=== PATIENT | male | born 1945 | race Caucasian/White ===

== ENCOUNTER 2016-11-06 09:07 | Outpatient (CLI) | payer BC ==
[~2016-11-06] VITALS: Ht 185.4 cm; Wt 87.3 kg
--- NOTE | ~2016-11-06 | HEMODYNAMI ---
PATIENT:ZULEMA HANSEN MEDICAL RECORD: [id number] : 45 LOCATION:[facility] ADMISSION DATE: 11/06/16 Generatedon:11/06/201613:35 Patient name: ZULEMA HANSEN Patient #: [id number] SSN: DO B: 1945 Date of study: 11/06/2016 Page: Of Hemodynamic Procedure Report Patient Data Patient Demographics Procedure consent was obtained First Name: ZULEMA Gender: Male Last Name: TYRONE : 1945 Patient #: [id number] Age: 71 year(s) Race: Unknown Additional ID: [id number] Contact details [address]: [address] [place] [address] State: [place] City: [place] Zip code: [address] Past Medical History Allergies Allergen Reaction Date Comments Reported Other allergy 11/06/2016 [facility] Admission Admission Data Admission Date: 11/06/2016 Admission Time: 9:07 Admit Source: Other Insurance Payor: Private health insurance Height (in.): 73 BSA: 2.11 (m2) Height (cm.): 185.42 BMI: 25.33 (kg/m2) Weight (lbs.): 192 Weight (kg.): 87.09 Lab Results Lab Result Date: 11/06/2016 Lab Result Time: 0:00 Biochemistry Name Units Result Min Max CK-MB ng/ml 2.9 --(---*)-- 0 3.6 Creatinine mg/dl 1 --(--*-)-- 0.6 1.3 Creatinine l 128 --(--*-)-- 21 215 Kinase Troponin l ng/ml 0.017 --(-*--)-- 0 0.06 CBC Name Units Result Min Max Hematocrit % 49.8 --(--*-)-- 42 54 Hemoglobin g/dl 17 --(---*)-- 13.5 17.5 Procedure Procedure Types Cath Procedure Diagnostic Procedure [facility] w/Coronaries FFR/IVUS Intra-Coronary IVUS Initial PCI Procedure Coronary Stent Initial Miscellaneous Procedures Moderate Sedation up to 45 minutes Procedure Description Procedure Date Procedure Date: 11/06/2016 Procedure Start Time: 13:11 Procedure End Time: 13:35 Procedure Staff Name Function Jose E Christopher MD Performing Physician Americo Hernandez RT Scrub Joe Tran RN Nurse Sabrina Akers RT Monitor Procedure Data Cath Procedure Fluoroscopy Diagnostic fluoroscopy Total fluoroscopy Time: 5.3 time: 5.3 min min Diagnostic fluoroscopy Total fluoroscopy dose: dose: 1529 mGy 1529 mGy Contrast Material Contrast Material Type Amount (ml) Isovue 300 132 Entry Location Entry Primary Successful Side Size Upsize Upsize Entry Closure Justcie ccessful Closure Location (Fr) 1 (Fr) 2 (Fr) Remarks Device Remarks Radial Right 6 Fr Mechanical artery Short Compression Estimated blood loss: 5 ml Diagnostic catheters Device Type Used For End Catheter Placement Medtronic Dexterity 5Fr LV Angiography TRACT catheter (NO COST SUPPLY) Medtronic Dexterity 5Fr Left Coronary TRACT catheter (NO COST Angiography SUPPLY) Medtronic Dexterity 5Fr Right Coronary TRACT catheter (NO COST Angiography SUPPLY) Procedure Complications No complications Procedure Medications Medication Administration Route Dosage Oxygen NC 2 l/min Heparin Flush Bag added to field 2 bags (1000units/500ml NS) 0.9% NaCl 100 ml/hr Radial Cocktail added to field 1 syringe (Verapomil 2mg/Nitro 400mcg/Heparin 1500units) Fentanyl I.V. 50 mcg Versed I.V. 1 mg Fentanyl I.V. 50 mcg Versed I.V. 1 mg Fentanyl I.V. 50 mcg Versed I.V. 1 mg Radial Cocktail I.A. 1 syringe (Verapomil 2mg/Nitro 400mcg/Heparin 1500units) Fentanyl I.V. 50 mcg Versed I.V. 1 mg Fentanyl I.V. 50 mcg Heparin Bolus I.V. 4000 units Integrilin (Bolus I.V. 7.9 ml 2mg/ml) Plavix P.O. 600 mg Hemodynamics Rest BSA: 2.11 (m2) HGB: 17 (g/dl) O2 Consumption: Estimated: 250.8 (ml/min) O2 Consu mption indexed: Estimated:118.86 (ml/min/m) Heart Rate: 79 (bpm) Snapshots Pre Cath Intra NCS Post Cath Vital Signs Time Heart Resp SPO2 etCO2 [id number] NIBP (mmHg) Rhythm Pain Sedatio n Rate (ipm) (%) (mmHg) (mmHg) Status Level (bpm) 12:29:29 73 17 98 0 0 141/106(128) A-Fib 0 (11) 10(A) , No pain 12:33:38 85 17 100 0 0 140/102(122) A-Fib 0 (11) 10(A) , No pain 12:37:48 85 16 99 0 0 140/98(124) A-Fib 0 (11) 10(A) , No pain 12:41:58 85 18 100 0 0 132/104(118) A-Fib 0 (11) 10(A) , No pain 12:46:04 72 19 100 0 0 135/105(125) A-Fib 0 (11) 10(A) , No pain 12:50:10 79 16 94 0 0 114/96(107) A-Fib 0 (11) 10(A) , No pain 12:54:10 81 16 96 0 0 123/94(116) A-Fib 0 (11) 10(A) , No pain 12:58:13 77 16 99 0 0 132/103(123) A-Fib 0 (11) 10(A) , No pain 13:02:21 82 17 99 0 0 139/97(124) A-Fib 0 (11) 10(A) , No pain 13:06:31 80 17 99 0 0 139/93(112) A-Fib 0 (11) 10(A) , No pain 13:10:41 84 16 94 0 0 129/90(107) A-Fib 0 (11) 10(A) , No pain 13:14:45 93 16 96 0 0 92/71(79) A-Fib 0 (11) 9(A) , No pain 13:19:21 84 17 94 0 0 111/82(87) A-Fib 0 (11) 9(A) , No pain 13:23:25 83 19 92 0 0 116/82(98) A-Fib 0 (11) 9(A) , No pain 13:27:31 94 18 94 0 0 107/78(92) A-Fib 0 (11) 9(A) , No pain 13:31:34 81 17 96 0 0 113/74(98) A-Fib 0 (11) 10(A) , No pain 13:35:32 82 14 98 0 0 123/89(103) A-Fib 0 (11) 10(A) , No pain Medications Time Medication Route Dose Verified Delivered Reason Note s Effectiveness by by 12:30:29 Oxygen NC 2 l/min Joe Joe Per physician Marc Tran RN RN 12:30:51 Heparin Flush added 2 bags Joe Joe used for Bag to Marc Tran RN procedure (1000units/500ml field RN NS) 12:31:03 0.9% NaCl 100 Joe Joe Per physician ml/hr Marc Tran RN RN 12:31:25 Radial Cocktail added 1 Joe Joe used for (Verapomil to syringe Marc Tran RN procedure 2mg/Nitro field RN 400mcg/Heparin 1500units) 13:08:46 Fentanyl I.V. 50 mcg Joe Joe for sedation Marc Tran RN RN 13:08:53 Versed I.V. 1 mg Joe Joe for sedation Marc Tran RN RN 13:10:16 Fentanyl I.V. 50 mcg Joe Joe for sedation Marc Tran RN RN 13:10:22 Versed I.V. 1 mg Joe Joe for sedation Marc Tran RN RN 13:11:47 Fentanyl I.V. 50 mcg Joe Joe for sedation Marc Tran RN RN 13:11:51 Versed I.V. 1 mg Joe Joe for sedation Marc Tran RN RN 13:12:44 Radial Cocktail I.A. 1 Joe Joe for (Verapomil syringe Marc Tran RN vasodilation 2mg/Nitro RN 400mcg/Heparin 1500units) 13:13:39 Fentanyl I.V. 50 mcg Joe Joe for sedation Marc Tran RN RN 13:13:46 Versed I.V. 1 mg Joe Joe for sedation Marc Tran RN RN 13:17:23 Fentanyl I.V. 50 mcg Joe Joe for sedation Marc Tran RN RN 13:19:30 Heparin Bolus I.V. 4000 Joe Joe for units Marc Tran RN anticoagulation RN 13:26:12 Integrilin I.V. 7.9 ml Joe Joe for (Bolus 2mg/ml) Tran Tran RN antiplatelet RN therapy 13:29:52 Plavix P.O. 600 mg Joe Tran RN antiplatelet RN therapy Procedure Log Time Note 12:12:08 Joe Tran RN sent for patient. Start room use. 12:12:16 Lab Result : Creatinine 1 mg/dl 12:12:16 Lab Result : Hemoglobin 17 g/dl 12:12:16 Lab Result : Troponin l 0.017 ng/ml 12:12:16 Lab Result : CK-MB 2.9 ng/ml 12:12:16 Lab Result : Creatinine Kinase 128 l 12:22:20 Time tracking: Regular hours 12:22:24 Plan of Care:Hemodynamics will remain stable., Cardiac rhythm will remain stable., Comfort level will be maintained., Respiratory function will remain adequate., Patient/ family verbilizes understanding of procedure., Procedure tolerated without complication., Recovers from procedure without complications.. 12:22:30 Patient received from Pre/Post Procedure Room to [facility] 1 Alert and oriented. Tansferred to table in Supine position. 12:22:31 Warm blankets applied, and jake hugger turned on for patient comfort. 12:22:31 Correct patient and procedure confirmed by team. 12:22:33 Signed procedure consent form obtained from patient. 12:22:33 ECG and BP/O2 sat monitors applied to patient. 12:22:34 Full Disclosure recording started 12:28:28 Vital chart was started 12:30:29 Oxygen 2 l/min NC was administered by Joe Tran RN; Per physician; 12:30:51 Heparin Flush Bag (1000units/500ml NS) 2 bags added to field was administered by Joe Tran RN; used for procedure; 12:31:03 0.9% NaCl 100 ml/hr was administered by Joe Tran RN; Per physician; 12:31:25 Radial Cocktail (Verapomil 2mg/Nitro 400mcg/Heparin 1500units) 1 syringe added to field was administered by Joe Tran RN; used for procedure; 12:32:40 Baseline sample Acquired. 12:32:45 Rhythm: atrial fibrillation 12:32:56 H&P Date Dictated: 11/03/2016 Within 30 days and on chart., H&P Addendum completed by physician on day of procedure. (MUST COMPLETE FOR ALL OUTPATIENTS). 12:32:58 Pre-procedure instructions explained to patient. 12:32:58 Pre-op teaching completed and patient verbalized understanding. 12:32:59 Family in waiting room. 12:33:01 Patient NPO since Midnight. 12:33:16 Patient allergic to Other allergyLevaquin 12:33:20 Is the patient allergic to Iodine/contrast media? No. 12:33:22 Is patient on blood thinner?No 12:33:27 Patient diabetic? No. 12:33:57 Previous problem with sedation/anesthesia? No ? 12:33:58 Snore? Yes 12:33:59 Sleep apnea? No 12:34:01 Deviated septum? No 12:34:01 Opens mouth fully? Yes 12:34:02 Sticks out tongue? Yes 12:34:04 Airway obstruction? No ? 12:34:06 Dentures? No ? 12:34:11 Pre procedure: right dorsailis pedis pulse 2+ Normal; easily identifiable; not easily obliterated 12:34:13 Modified Douglas's test Ulnar < 7 seconds 12:34:14 Patient pain scale 0/10 ?. 12:34:19 IV patent on arrival in left hand with 0.9% NaCl at O. 12:34:23 Lab results completed and on chart. 12:34:33 Right Radial & Left Groin area was prepped with chlora-prep and draped in sterile fashion 12:34:34 Alarms reviewed by R. N. 12:34:35 Sharps counted by scrub and verified by R.N. 12:34:37 Use device set Radial Dx 12:34:38 Acist Syringe opened to sterile field. 12:34:39 Medline Cath Pack opened to sterile field. 12:34:39 Bag Decanter opened to sterile field. 12:34:40 Terumo 6Fr Slender Glidesheath opened to sterile field. 12:34:40 St Jacob 260cm J .035 wire opened to sterile field. 12:34:41 Acist Hand Control opened to sterile field. 12:34:41 Acist Manifold opened to sterile field. 12:34:42 Tegaderm 4 x 4 opened to sterile field. 12:34:42 MBrace Wrist Support opened to sterile field. 12:35:34 Final Timeout: patient, procedure, and site verified with staff and physician. All members of the team are in agreement. 12:35:38 Right Radial site verified by team. 12:35:40 Physical assessment completed. ASA score P 2 - A patient with mild systemic disease as per Jose E Christopher MD. 12:35:44 Sedation plan: IV Moderate Sedation Versed, Fentanyl 12:44:53 Zero performed for pressure channel P1 12:44:57 Zero performed for pressure channel P1 13:04:13 Patient Height : 73 cm 13:04:17 Patient Weight : 192 kg 13:04:21 Admit Source: Other 13:04:29 Insurance Payor : Private health insurance 13:08:01 Lab Result : Hematocrit 49.8 % 13:08:46 Fentanyl 50 mcg I.V. was administered by Joe Tran RN; for sedation; 13:08:53 Versed 1 mg I.V. was administered by Joe Tran RN; for sedation; 13:10:16 Fentanyl 50 mcg I.V. was administered by Joe Tran RN; for sedation; 13:10:22 Versed 1 mg I.V. was administered by Joe Tran RN; for sedation; 13:10:53 Procedure started. 13:11:04 Local anesthetic to right radial artery with Lidocaine 2% by Jose E Christopher MD.INITIAL ACCESS ONLY 13:11:47 Fentanyl 50 mcg I.V. was administered by Joe Tran RN; for sedation; 13:11:51 Versed 1 mg I.V. was administered by Joe Tran RN; for sedation; 13:12:03 A 6 Fr Short sheath was inserted into the Right Radial artery 13:12:44 Radial Cocktail (Verapomil 2mg/Nitro 400mcg/Heparin 1500units) 1 syringe I.A. was administered by Joe Tran RN; for vasodilation; 13:12:45 A OVIAerity 5Fr TRACT catheter (NO COST SUPPLY) was advanced over the wire and used for LV Angiography. 13:13:39 Fentanyl 50 mcg I.V. was administered by Joe Tran RN; for sedation; 13:13:46 Versed 1 mg I.V. was administered by Joe Tran RN; for sedation; 13:13:54 LV gram done using EPPS 13:13:58 EF : 50 % 13:14:02 Injector settings: Ml/sec: 5, Volume: 15, 13:14:15 A Medtronic Dexterity 5Fr TRACT catheter (NO COST SUPPLY) was advanced over the wire and used for Left Coronary Angiography. 13:15:23 A Medtronic Dexterity 5Fr TRACT catheter (NO COST SUPPLY) was advanced over the wire and used for Right Coronary Angiography. 13:15:24 Catheter removed. 13:15:55 Medtronic Launcher 6Fr EBU 4.0 guide catheter opened to sterile field. 13:16:07 6 Fr EBU 4.0 guide catheter was inserted over the wire 13:17:11 LCA angiography performed. 13:17:23 Fentanyl 50 mcg I.V. was administered by Joe Tran RN; for sedation; 13:18:28 Catheter removed. 13:18:55 [place] IVUS Catheter opened to sterile field. 13:18:56 Merit BasixCompak Inflation Kit opened to sterile field. 13:18:57 Wu Whisper J 300cm 0.014 guide wire opened to sterile field. 13:19:29 Whisper wire advanced. 13:19:30 Heparin Bolus 4000 units I.V. was administered by Joe Tran RN; for anticoagulation; 13:20:37 IVUS catheter advanced over wire. 13:24:09 IVUS pass to LAD lesion performed. 13:24:10 IVUS catheter removed over wire. 13:26:12 Integrilin (Bolus 2mg/ml) 7.9 ml I.V. was administered by Joe Tran RN; for antiplatelet therapy; 13:26:39 Inflation Number: 1 A Biofreedom 4.0 X 18 stent (No Cost Implant) was prepped and advanced across the Mid LAD. The stent was deployed at 13 ZEENAT for 0:06 (min:sec). 13:26:52 Stent catheter was removed intact over wire. 13:26:52 Wire removed. 13:26:53 Guide catheter removed. 13:27:00 Sheath removed intact; hemostasis achieved with Mechanical Compression to the Right Radial artery. 13:27:04 Procedure ended.(Physican Out) 13:27:13 Fluoroscopy time 05.30 minutes. 13:27:18 Fluoroscopy dose: 1529 mGy 13:27:18 Flurop Dose total: 1529 13:27:30 Contrast amount:Isovue 300 132ml. 13:27:32 Sharps counted by scrub and verified by R.N. 13:27:33 TR band inflated with 12cc of air. 13:27:34 Insertion/operative site no bleeding no hematoma. 13:27:40 Post right radial artery:stable, clean and dry 13:27:42 Post Procedure Pulses reassessed and unchanged 13:27:44 Post-procedure physical assessment completed. ASA score P 2 - A patient with mild systemic disease as per Jose E Christopher MD. 13:27:46 Post procedure rhythm: unchanged. 13:27:49 Estimated blood loss: 5 ml 13:27:51 Post procedure instruction explained to patient.Patient verbalizes understanding. 13:27:51 Patient needs reinforcement of post procedure teaching. 13:28:20 Procedure type changed to Cath procedure, Diagnostic procedure, LHC, LHC w/Coronaries, FFR/IVUS, Intra-Coronary IVUS Initial, PCI procedure, Coronary Stent Initial, Miscellaneous Procedures, Moderate Sedation up to 45 minutes 13:29:08 Procedure Complication : No complications 13:29:10 See physician's report for complete and final results. 13:29:52 Plavix 600 mg P.O. was administered by Joe Tran RN; for antiplatelet therapy; 13:30:08 Terumo TR Band Standard opened to sterile field. 13:30:38 Procedure and supply charges have been captured, reviewed, submitted and are correct. 13:35:27 Vital chart was stopped 13:35:29 Report given to Pre/Post Procedure Room. 13:35:33 Patient transfered to Pre/Post Procedure Room with Stretcher. 13:35:36 Procedure ended. 13:35:36 Full Disclosure recording stopped 13:35:42 End room use (Document Last) Intervention Summary Intervention Notes Time ActionType Lesion and Equipment Action# Pressure Duration Attributes Used 13:26:39 Place stent Mid LAD Biofreedom 1 13 00:06 4.0 X 18 stent (No Cost Implant) Device Usage Item Name Manufacture Quantity Catalog Hospital Part Current Minimal Lot# / Number Charge Number Stock Stock Serial# Code Acist Acist 1 15422 127378 126236 479051 20 Syringe Medical Systems Inc Medline Cardinal 1 [id number] 745447 56004 945576 5 Cath Pack Health Bag Microtek 1 2001S 966356 92410 430513 5 ShipServ Inc. Terumo 6Fr Terumo 1 [id number] 399181 344913 282597 [address] Jacob 1 064400 172229 769087 255941 30 260cm J .035 wire Acist Hand Acist 1 48071 859929 876546 630575 5 Control Medical Systems Inc Acist Acist 1 44470 615475 053871 371479 5 Manifold Medical Systems Inc Tegaderm 4 3M 1 1626W 433438 493834 863022 5 x 4 MBrace Advanced 1 140-0250-00 968895 58765 088466 5 Wrist Vascular Support Dynamics Medtronic Medtronic 1 [id number] 539679 903810 5 Dexterity 5Fr TRACT catheter (NO COST SUPPLY) Medtronic Medtronic 1 [id number] 216869 60892 166583 1 Launcher 6Fr EBU 4.0 guide catheter [place] 1 [id number] 840117 534991 049140 8 [place] E[place]ley[place] IVUS Catheter Merit Merit 1 [id number] 035837 655872 270427 15 BasixCompak Medical Inflation Kit Wu Wu 1 [id number] 875830 691865 083496 5 Whisper J Vascular 300cm 0.014 guide wire Biofreedom Biosensors 1 [id number] 176395 674386 5 [id number] 4.0 X 18 [place] SA stent (No Cost Implant) Terumo TR Terumo 1 [id number] 063377 223586 968019 40 Band Standard Signature Audit [place] Stage Time Signature Unsigned Intra-Procedure 11/06/2016 Sabrina 1:35:51 PM Counts RT(R) Signatures Monitor : Sabrina Signature : Counts RT Date : Time : [facility] [address] [place] [address]
[~2016-11-06 09:07] MED LIST: ALTACE10 MG PO; ASPIRIN EC81 M1 PO; FISH OIL 1,0001 CA1 PO; FOLIC ACID1 MG PO; HYDROCHLOROTH12.5 M1 PO; LIPITOR20 MG PO; LODINE500 MG PO; METHOTREXATE2.5 MG PO; OS-CAL500 MG PO; PLAVIX75 MG PO; PRILOSEC20 MG PO; VITAMIN B COMPL1 TAB PO; VITAMIN C1000 MG PO; VITAMIN D31000 UNIT PO
[2016-11-06] MEDS ORDERED: OMEPRAZOLE40 MG PO (09:52)
[2016-11-06 10:02] VITALS: BP 135/91; Ht 185.4 cm; Wt 87.3 kg
[2016-11-06 10:13] LABS: BASOPHILS 0.3 % (0-2); HEMATOCRIT 49.8 % (42.0-54.0); IMMATURE GRANULOCYTES 0.1 % (0-5); LYMPHOCYTES 28.3 % (15-50); MCH 34.1 pg (26.0-34.0); MCHC 34.1 g/dL (31.0-37.0); MCV 99.8 fL (80.0-100.0); MEAN PLATELET VOLUME 11.3 fL (7.4-10.4); MONOCYTES 7.1 % (2-11); NEUTROPHILS 62.2 % (40-80); PLATELET COUNT 187 10x3/uL (130-400); RBC 4.99 10x6/uL (4.20-6.10); RDW 13.2 % (11.5-14.5); WBC 7.6 10x3/uL (4.8-10.8)
[2016-11-06 10:35] LABS: CALC OSMOLALITY 283 mosm/kg (275-300); CARBON DIOXIDE 32.7 mmol/L (21.0-32.0); CHLORIDE - SERUM 107 mmol/L (98-107); CKMB 2.9 U/L (0.0-3.6); CREATINE KINASE 128 UL (21-232); GLUCOSE 95 mg/dL (74-106); POTASSIUM - SERUM 4.1 mmol/L (3.5-5.1); SODIUM 141 mmol/L (136-145); UREA NITROGEN 21 mg/dL (7-18); eGFR NON AFRICAN AMERICAN 78 mL/min (90-120)
[2016-11-06 10:38] LABS: TROPONIN-I < 0.017 ng/mL (0.000-0.060)
[2016-11-06] MEDS ORDERED: PLAVIX75 MG PO (13:48)
--- NOTE | 2016-12-10 08:49 | OP ---
PATIENT NAME: ZULEMA HANSEN MEDICAL RECORD: [id number] :45 LOCATION:D.CAT ADMISSION DATE: SURGEON: INGRID HOFFMAN MD DATE OF OPERATION: 11/06/2016 PROCEDURES: 1. PTCA stent LAD. 2. Left heart catheterization. 3. Selective coronary angiography. 4. Left ventriculogram. INDICATION: Angina and coronary artery disease. PROCEDURE IN DETAIL: After informed consent was obtained and after detailed explanation of risks, benefits as well as alternative therapies, the patient elected to proceed with angiogram and angioplasty. The right femoral area is prepped and draped in normal sterile fashion. Right femoral artery was cannulated via modified Seldinger technique with placement of 6-[place]izen [place] sheath. All catheters exchanged through this sheath. FINDINGS: The left ventriculogram was performed in the standard 30-degree EPPS view, reveals good cardiac wall motion throughout all segments. Overall ejection fraction estimated at 60%. SELECTIVE CORONARY ANGIOGRAPHY: 1. Left main is with no significant angiographic disease. 2. Left anterior descending has previously placed stents, these have 78% in-stent restenosis confirmed by intravascular ultrasound. 3. Left circumflex shows mild irregularities, but no flow-limiting stenosis. 4. Right coronary has mild irregularities, but no flow-limiting stenosis. PTCA STENT OF THE LAD: Lesion was a 15-mm lesion, this is a 4.0 mm vessel with approximately 75% stenosis visually. This was addressed with a 4.0 x 18 mm BioFreedom stent. Result was 0% residual stenosis with RONNA-3 flow. There is RONNA-3 flow before the intervention as well. OVERALL IMPRESSION: Successful percutaneous transluminal coronary angioplasty stent of the left anterior descending going from 78% initial stenosis confirmed by intravascular ultrasound to 0% residual stenosis. TRANSINT:[id number] Voice Confirmation ID: [id number] DOCUMENT ID: [id number] INGRID HOFFMAN MD at 0849 CC: [id number] DICTATION DATE: 11/27/16 1500 COMMUNITY ASSOCIATE: 11/27/16 2320 DEP CLI 11/06/16 [place] [id number] [place] [id number]
== END 2016-11-06 17:30 | disposition home or self-care (01) ==
LOC: D.CATH 09:07
PROVIDERS: Internal Medicine Interventional Cardiology
DX: I25.119 Atherosclerotic heart disease of native coronary artery with unspecified angina pectoris (principal); Z00.6 Encounter for examination for normal comparison and control in clinical research program; Z01.812 Encounter for preprocedural laboratory examination; T82.855A Stenosis of coronary artery stent, initial encounter; Y83.8 Other surgical procedures as the cause of abnormal reaction of the patient, or of later complication, without mention of misadventure at the time of the procedure

== ENCOUNTER 2016-12-23 06:08 | Day surgery (SDC) | payer BC ==
--- NOTE | 2016-12-12 12:08 | HP ---
PATIENT: ZULEMA HANSEN MEDICAL RECORD: [id number] ACCOUNT: [id number] LOCATION:.[facility] : 45 ADMISSION DATE: 12/23/16 HISTORY AND PHYSICAL EXAMINATION ZULEMA Moreno (71yo, M) ID# [id number]. Date/Time12/09/2016 01:65WYAQR44/22/194Ser[facility] Dept.[facility] ClinicProviderEDNELSON CRESPO MDInsuranceMed Primary: [place] Insurance # : [id number] Policy/Group # : [id number] Referring Provider Name : MARY BELLE Employer Name : [employer] Prescription: ESI1 - Member is eligible. Chief Complaint Coronary artery disease Followup: Mitral valve regurgitation Followup: Atrial fibrillation Patient's Care Team Referring Provider (): MARY BELLE: [address] [place] [address], , Patient's Pharmacies [id number] ([place]): [address] [place] [id number], , Vitals BP:110/80 sitting R arm 12/09/2016 01:14 pm 108/70 sitting L arm 12/09/2016 01:14 pmHR:88irreg 12/09/2016 01:15 pmHt:6 ft 1 in 12/09/2016 01:14 pmWt:192 lbs 12/09/2016 01:12 pmBMI:25.3 12/09/2016 01:14 pmAllergies LEVAQUINMedications aspirin 81mg daily12/09/16 enteredCindy Brownatorvastatin 20 mg afpqgo21/24/17 cmjwmiDIFVNyyvkxah97/14/17 enteredCindy Brownclopidogrel 75 mg tablet Take 1 tablet(s) every day by oral route.11/30/16 filledMEDCOetodolac ER 500 mg tablet,extended release 24 hr Take 0.5 tablet(s) every day by oral route.12/09/16 enteredCindy BrownFish Oil12/09/16 enteredCindy BrownFluad 65yr up(PF)45 mcg(15 mcgx3)/0.5 mL intramuscular uxmbkhj20/12/16 filledMEDCOfolic acid 1 mg smeoct61/31/17 filledMEDCOhydroCHLOROthiazide 12.5 mg /08/17 filledMEDCOLopressor 25mg tablet daily, start filledCindy BrownmetHOTREXate sodium 2.5 mg /18/17 filledMEDCOmetoprolol succinate ER 25 mg tablet,extended release 24 hr12/08/16 filledMEDCOomeprazole 40 mg capsule,delayed uqgdleg03/17/17 filledMEDCOramipril 10 mg vaupasd86/01/17 filledMEDCOsulfamethoxazole 800 mg-trimethoprim 160 mg /18/16 filledMEDCOXarelto 20 mg tablet Take 1 tablet(s) every day by oral route.12/09/16 enteredCindy BrownProblems Reviewed Problems Mitral valve regurgitation - Onset: 12/09/2016 Atrial fibrillation - Onset: 12/09/2016 Coronary arteriosclerosis - Onset: 12/09/2016 Family History Discussed Family History Father- AneurysmBrother- Myocardial infarctionSocial History Discussed Social History Cardiology Family history of heart disease?: Y HISTORY AND PHYSICAL [id number] ZULEMA HANSEN Smoking Status: Never smoker High Cholesterol: Y High blood pressure: Y Exercise level: Occasional Alcohol intake: Moderate Surgical History Reviewed Surgical History Other - knee scope Past Medical History Discussed Past Medical History Coronary Artery Disease: Y Heart Disease: Y Heart stents: Y High Blood Pressure: Y Hyperlipidemia: Y Documents for Discussion N/A Screening None recorded. HPI Coronary Artery Disease F/U Reported by patient. Associated Symptoms: dyspnea with exertion mitral regurgitation Atrial fibrillation Coronary artery disease ROS Patient reports exercise intolerance but reports no fever, no night sweats, no significant weight gain, and no significant weight loss. He reports shortness of breath when walking, known heart murmur, and light-headed on standing but reports no chest pain, no arm pain on exertion, no shortness of breath when lying down, and no palpitations. He reports shortness of breath but reports no cough, no wheezing, and no coughing up blood. He reports arthralgias/joint pain but reports no muscle aches, no muscle weakness, no back pain, and no swelling in the extremities. He reports no dry eyes, no irritation, and no vision change. He reports no difficulty hearing and no ear pain. He reports no frequent nosebleeds and no nose/sinus problems. He reports no sore throat, no bleeding gums, no snoring, no dry mouth, no mouth ulcers, no oral abnormalities, and no haily t h problems. He reports no jugular vein distension and no swollen glands. He reports no abdominal pain, no vomiting, normal appetite, no diarrhea, not vomiting blood, no nausea, and no constipation. He reports no incontinence, no difficulty urinating, no h e maturia, and no increased frequency. He reports no abnormal mole, no jaundice, and no rashes. He reports no loss of consciousness, no weakness, no numbness, no seizures, no dizziness, and no headaches. He reports no depression, no sleep disturbances, feel ing safe in relationship, and no alcohol abuse. He reports no fatigue. He reports no swollen glands and no bruising. He reports no runny nose, no sinus pressure, no itching, no hives, and no frequent sneezing. ROS as noted in the HPI Physical Exam Patient is a 71-year-old male. Constitutional: General Appearance well nourished and developed and healthy-appearing. Level of Distress NAD. Ambulation ambulating normally. HISTORY AND PHYSICAL [id number] ZULEMA HANSEN Cardiovascular: Apical Impulse not displaced or no thrill. Heart Auscultation normal s1 and s2, no rubs or gallops, and RRR and murmur (mitral regurgitation). Arterial Pulses no abdominal aorta bruits, femoral bruits, or popliteal bruits and 2+ bilateral, carotid 2+ bilateral, femoral 2+ bilateral, popliteal 2+ bilateral, and dorsalis pedis 2+ bilateral. Edema no edema or varicosities. Lungs: Repiratory Effort no dyspnea. Percussion no hyperresonance or dullness or flatness. Auscultation no wheezing, rhonchi, or rales / crackles and breathing sounds normal, good air movement, and CTA except as noted. Abdomen: Bowl Sounds normal. Inspection and Palpation no tenderness, guarding, masses, or rebound tenderness and soft and non-distended. Liver non-tender and no hepatomegaly. Spleen non-tender and no splenomegaly. Hernia none palpable. Musculoskeletal System: Gait And Stance normal gait and stance. Digits and Nails normal nails and no cyanosis. Neurologic: Cranial Nerves grossly intact. Reflexes DTRs 2+ bilaterally throughout. Sensation grossly intact. Lymph Nodes: Lymph Nodes no cervical LAD, supraclavicular LAD, axillary LAD, or inguinal LAD. Eyes: Lids and Conjunctivae no discharge or pallor and non-injected. Pupils PERRLA. Cornea grossly intact. EOM EOMI. Lens clear. Sclerae non-icteric. Neck: Neck no masses, enlarged lymph nodes, or carotid bruits and supple and trachea midline. Thyroid no enlargement or nodules and non-tender. Skin: Inspection and Palpation no rash, lesions, ulcers, jaundice, or abnormal nevi. Assessment / Plan mitral regurgitation Atrial fibrillation coronary artery disease 1. Atrial fibrillation I48.91: Unspecified atrial fibrillation ATRIAL FIBRILLATION: CARE INSTRUCTIONS 2. Mitral valve regurgitation I34.0: Nonrheumatic mitral (valve) insufficiency HEART VALVE DISEASE: CARE INSTRUCTIONS MITRAL VALVE REGURGITATION: CARE INSTRUCTIONS Discussion Notes Dr. [place] city secretary plans cardioversion 23 December we'll proceed with transesophageal echo [facility] In the future he may need mitral valve repair and a Cameron ablation procedure for mitral regurgitation and atrial fibrillation HISTORY AND PHYSICAL [id number] ZULEMA HANSEN EDWARD MD at 1208 CC: [id number] DICTATION DATE: 12/09/16 1300 DAIRY TRUCK DRIVER: CALDERON 12/10/16 1614 PRE [facility] [address] [place] [address]
[~2016-12-23] VITALS: Ht 185.4 cm; Wt 85.3 kg
--- NOTE | ~2016-12-23 | TEE ---
PATIENT:ZULEMA HANSEN MEDICAL RECORD: [id number] LOCATION:[facility] AGE OF PATIENT: 71 ADMISSION DATE: 12/23/16 SEX: M REFERRING PHYSICIAN: INTERPRETING PHYSICIAN: INGRID CHRISTOPHER MD TRANSESOPHAGEAL ECHOCARDIOGRAM WILY CHARGE Y INDICATIONS: REGULAR WILY - EVALUATE MR PREMEDICATIONS: PATIENT'S RESPONSE PROCEDURE DOPPLER MEASUREMENTS: LVIT LA PA RA LVOT RVOT Asc. Ao AV Gradient Peak AV Mean AV Area MV Gradient Peak MV Mean MV Area INTERPRETATION: Doppler: 2-D: COLOR FLOW DOPPLER NORMAL SALINE STUDY: MISCELLANOUS: DIAGNOSIS: PLAN: Log Clerk:1 Dr. Christopher Stock Worker And Deliverer: Tracy PINTO COMMENTS: TRANSESOPHAGEAL ECHOCARDIOGRAM EVALUATION OF VALVULAR STRUCTURES DURING BYPASS SURGERY 1. Left ventricular chamber size is within normal limits. Left ventricular systolic function is normal. Overall ejection fraction is estimated at 55-60 percent. 2. Left atrium, right atrium, and right ventricular chamber sizes are mildly dilated. 3. Valvular structures have normal structure and motion. 4. Doppler interrogation reveals mild mitral regurgitation; no other valvular TRANSESOPHAGEAL ECHOCARDIOGRAM REPORT [id number] ZULEMA AHNSEN insufficiency or stenosis. 5. No evidence of pericardial effusion or left ventricular thrombus. INGRID CHRISTOPHER MD CC: [id number] DICTATION DATE: 12/25/162357 STEAM SERVICE INSPECTOR: JANEY 12/25/162357 [facility] 12/23/16 [address] [place] [address]
[~2016-12-23 06:08] MED LIST changes: +OMEPRAZOLE40 MG PO
[2016-12-23 06:55] VITALS: BP 124/73; Ht 185.4 cm; Wt 85.3 kg
[2016-12-23] MEDS ORDERED: XARELTO20 MG PO (06:59)
[2016-12-23] MEDS ORDERED: METOPROLOL TART25 MG PO (07:00)
[2016-12-23] MEDS ORDERED: PACERONE400 MG PO (07:01)
[2016-12-23 07:25] LABS: HEMATOCRIT 45.7 % (42.0-54.0); HEMOGLOBIN 15.2 g/dL (13.5-17.5); MCH 33.7 pg (26.0-34.0); MCHC 33.3 g/dL (31.0-37.0); MCV 101.3 fL (80.0-100.0); MEAN PLATELET VOLUME 10.9 fL (7.4-10.4); RBC 4.51 10x6/uL (4.20-6.10); RDW 13.2 % (11.5-14.5); WBC 6.5 10x3/uL (4.8-10.8)
[2016-12-23 07:32] LABS: CALCIUM 9.5 mg/dL (8.5-10.1); CARBON DIOXIDE 31.4 mmol/L (21.0-32.0); CREATININE - SERUM 1.1 mg/dL (0.6-1.3); INR 1.35 (0.85-1.17); POTASSIUM - SERUM 4.4 mmol/L (3.5-5.1); PROTIME 16.6 SECONDS (11.6-15.0)
[2016-12-23 08:38] LABS: APPEARANCE CLEAR (CLEAR); BACTERIA FEW /hpf (NONE SEEN); BILIRUBIN NEGATIVE (NEGATIVE); COLOR DK YELLOW (YELLOW); EPITHELIAL CELLS OCC /hpf (0-5); GLUCOSE NEGATIVE (NEGATIVE); KETONE NEGATIVE (NEGATIVE); LEUKOCYTE ESTERASE TRACE (NEGATIVE); MUCUS >1+ /lpf (NONE SEEN); NITRITE NEGATIVE (NEGATIVE); PROTEIN TRACE mg/dL (NEGATIVE); RED CELLS - URINE RARE /hpf (0-5); SPECIFIC GRAVITY 1.015 (1.005-1.020); WHITE CELLS - URINE OCC /hpf (0-5)
--- NOTE | 2016-12-23 08:54 | NUR ---
CONSULTED DR GAGNON REGARDING LOW HEART RATE. HEART RATE WAS 5O PREOP. NO CONCERNS. NO FURTHER ORDERS.
--- NOTE | 2016-12-23 09:25 | NUR ---
0995 DR. ZAK MINOR AND GIVES PT AND PT'S RESULTS. PT. CLEARING THROAT. HOB ELEVATED.
== END 2016-12-23 10:10 | disposition home or self-care (01) ==
LOC: D.OPS 06:08
PROVIDERS: Internal Medicine Cardiovascular Disease
DX: I34.0 Nonrheumatic mitral (valve) insufficiency (principal); I25.10 Atherosclerotic heart disease of native coronary artery without angina pectoris; I48.91 Unspecified atrial fibrillation; E78.00 Pure hypercholesterolemia, unspecified; Z95.5 Presence of coronary angioplasty implant and graft; Z01.812 Encounter for preprocedural laboratory examination

== ENCOUNTER → 2017-02-01 07:47 | Outpatient (CLI) | payer BC ==
[2016-12-23 06:55] VITALS: BMI 24.9
[~2017-02-01 07:47] MED LIST changes: +METOPROLOL TART25 MG PO; +PACERONE400 MG PO; +XARELTO20 MG PO
== END | disposition home or self-care (01) ==
LOC: D.RT 01-20 13:00
DX: Z79.899 Other long term (current) drug therapy (principal)